=== PATIENT | male | born 1995 | race Caucasian/White ===

== ENCOUNTER 2018-05-25 10:50 | Observation (INO) | payer BC ==
[2018-05-25] MEDS ORDERED: Sodium Chloride 0.9% 10 ML Syringe FLUSH PRN (11:08)
[2018-05-25] MEDS ORDERED: Sodium Chloride 0.9% 1,000 ML IV ONE (11:28)
[2018-05-25] MEDS ORDERED: Sodium Chloride 0.9% 1,000 ML IV SCH (11:30)
--- NOTE | 2018-05-25 11:36 | EDM.PDOC ---
ED HPI GENERAL MEDICAL PROBLEM - General Chief Complaint: Abdominal Pain Stated Complaint: LOWER RT SIDE PAIN Time Seen by Provider: 05/25/18 11:20 Source of Information: Reports: Patient History Limitations: Reports: No Limitations - History of Present Illness INITIAL COMMENTS - FREE TEXT/NARRATIVE: 23-year-old male with onset of lower quadrant abdominal pain that was diffuse at approximately 3 PM yesterday and then at approximately 10 PM last night the pain had moved to his right lower quadrant and he reports that he did not sleep well last night because of the pain. This morning he had normal appetite and he felt somewhat nauseated. The pain has progressively worsened through the day and is worse with movement, palpation and with walking. He rates the pain as a 5 /10 now. It is aching and dull is an 8/10 when he stands and walks and becomes sharp at that point. There is no radiation of the pain. He's had no vomiting. He did have a normal bowel movement yesterday that did nothing to relieve his pain. He's had no fevers. He has had no chills. He has had no dysuria or hematuria. No sore throat. No cough. He has had malaise. His last meal was at 7: 30 PM last night and his last po intake was at 10:30 PM last night. There are no other associated signs or symptoms. There are no other modifying factors. Onset: Other (Yesterday at 3 PM) Duration: Getting Worse, Other (Moved to right lower quadrant at 10 PM last night.) Location: Reports: Abdomen Quality: Reports: Ache, Sharp, Throbbing Severity: Moderate Improves with: Reports: Immobilization, Rest Worsens with: Reports: Other (Palpation and walking.), Movement Context: Reports: Other (As above.) Associated Symptoms: Reports: Loss of Appetite, Malaise, Nausea/Vomiting ( Nausea but no vomiting.) Treatments PERFORATOR LOADER: Reports: Other (see below) Other Treatments PERFORATOR LOADER: Nothing R lower abdomen Pain Score (Numeric/FACES): 5 - Related Data Allergies Allergy/AdvReac Type Severity Reaction Status Date / Time No Known Allergies Allergy Verified 05/25/18 10:55 Home Meds: Home Meds NK [No Known Home Meds] 05/25/18 [History] Past Medical History Respiratory History: Reports: Asthma, Croup (Exercise-induced and he has not required an inhaler for a long time.) Other Respiratory History: exercise induced asthma - Infectious Disease History Infectious Disease History: Reports: Chicken Pox - Past Surgical History HEENT Surgical History: Reports: 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.) Social & Family History - Tobacco Use Smoking Status *Q: Never Smoker - Caffeine Use Caffeine Use: Reports: Energy Drinks, Tea - Recreational Drug Use Recreational Drug Use: No - Living Situation & Occupation Living situation: Reports: Single Occupation: Student (He is a student at [employer] in [employer] ED ROS GENERAL - Review of Systems Review Of Systems: See Below Constitutional: Reports: Malaise, Decreased Appetite HEENT: Reports: No Symptoms Respiratory: Reports: No Symptoms Cardiovascular: Reports: No Symptoms Endocrine: Reports: No Symptoms GI/Abdominal: Reports: Abdominal Pain, Anorexia, Nausea : Reports: No Symptoms Musculoskeletal: Reports: No Symptoms Skin: Reports: No Symptoms Neurological: Reports: No Symptoms Psychiatric: Reports: No Symptoms Hematologic/Lymphatic: Reports: No Symptoms Immunologic: Reports: No Symptoms ED EXAM, GI/ABD - Physical Exam Exam: See Below Exam Limited By: No Limitations General Appearance: Alert, WD/WN, No Apparent Distress Eyes: Bilateral: Normal Appearance, EOMI Ears: Normal External Exam, Hearing Grossly Normal Nose: Normal Inspection, Normal Mucosa, No Blood Throat/Mouth: Normal Inspection, Normal Oropharynx, Normal Voice, No Airway Compromise Head: Atraumatic, Normocephalic Neck: Normal Inspection, Supple, Non-Tender, Full Range of Motion Respiratory/Chest: No Respiratory Distress, Lungs Clear, Normal Breath Sounds, No Accessory Muscle Use, Chest Non-Tender Cardiovascular: Normal Peripheral Pulses, Regular Rate, Rhythm, No JVD, No Murmur GI/Abdominal Exam: Normal Bowel Sounds, Soft, No Organomegaly, No Mass, Rebound (Localized in the right lower quadrant), Tender (In the right lower quadrant) Back Exam: Normal Inspection Extremities: Normal Inspection, Normal Range of Motion, Non-Tender, Normal Capillary Refill Neurological: Alert, Oriented, CN II-XII Intact, Normal Cognition, No Motor/ Sensory Deficits Psychiatric: Normal Affect, Normal Mood Skin Exam: Warm, Dry, Intact, Normal Color, No Rash Lymphatic: No Adenopathy Course - Vital Signs Last Recorded V/S: Last Vital Signs Temp 36.8 C 05/25/18 12:44 Pulse 79 04/18/19 12:44 Resp 18 05/25/18 12:44 BP 117/73 05/25/18 12:44 Pulse Ox 100 05/25/18 12:44 - Orders/Labs/Meds Orders: Active Orders 24 hr Category Date Time Status Nothing per Oral Now Diet [DIET] Diet 05/25/18 Dinner Ordered Abdomen Pelvis w Cont [CT] Stat Exams 05/25/18 11:53 Taken Sodium Chloride 0.9% [Normal Saline] 1,000 ml Med 05/25/18 11:30 Active IV ASDIRECTED Sodium Chloride 0.9% [Saline Flush] Med 05/25/18 11:08 Active 10 ml FLUSH ASDIRECTED PRN Peripheral IV Insertion Adult [OM.PC] Routine Oth 05/25/18 11:08 Ordered Medication Orders Sodium Chloride (Normal Saline) 1,000 mls @ 250 mls/hr IV ASDIRECTED ALYSSA Last Admin: 05/25/18 12:40 Dose: 250 mls/hr Sodium Chloride (Saline Flush) 10 ml FLUSH ASDIRECTED PRN PRN Reason: Keep Vein Open Last Admin: 05/25/18 11:30 Dose: 10 ml Labs: Laboratory Tests 05/25/18 05/25/18 05/25/18 Range/Units 11:08 11:30 11:30 WBC 7.8 (4.5-12.0) X10-3/uL RBC 4.66 (4.30-5.75) x10(6)uL Hgb 14.1 (13.5-17.8) g/dL Hct 40.9 (30.0-51.3) % MCV 87.8 (80-96) fL MCH 30.3 (27.7-33.6) pg MCHC 34.5 (32.2-35.4) g/dL RDW 11.9 (11.5-15.5) % Plt Count 185 (125-369) X10(3)uL MPV 9.0 (7.4-10.4) fL Neut % (Auto) 66.4 (46-82) % Lymph % (Auto) 18.9 (13-37) % [place] % (Auto) 13.2 H (4-12) % Eos % (Auto) 1 (1.0-5.0) % Baso % (Auto) 0 (0-2) % Neut # (Auto) 5.2 (1.6-8.3) # Lymph # (Auto) 1.5 (0.6-5.0) # [place] # (Auto) 1.0 (0.0-1.3) # Eos # (Auto) 0.1 (0.0-0.8) # Baso # (Auto) 0.0 (0.0-0.2) # Sodium 141 (135-145) mmol/L Potassium 4.2 (3.5-5.3) mmol/L Chloride 105 (100-110) mmol/L Carbon Dioxide 25 (21-32) mmol/L BUN 15 (7-18) mg/dL Creatinine 1.1 (0.70-1.30) mg/dL Est Cr Clr Drug Dosing 107.21 mL/min Estimated GFR (MDRD) > 60 (>60) BUN/Creatinine Ratio 13.6 (9-20) Glucose 92 (80-116) mg/dL Calcium 9.0 (8.6-10.2) mg/dL C-Reactive Protein (0.5-0.9) mg/dL Urine Color Yellow (YELLOW) Urine Appearance Slightly cloudy (CLEAR) Urine pH 5.0 (5.0-6.5) Ur Specific [place] 1.025 (1.010-1.025) Urine Protein Negative (NEGATIVE) mg/dL Urine Glucose (UA) Normal (NORMAL) mg/dL Urine Ketones Negative (NEGATIVE) mg/dL Urine Occult Blood Negative (NEGATIVE) Urine Nitrite Negative (NEGATIVE) Urine Bilirubin Negative (NEGATIVE) Urine Urobilinogen Normal (NEGATIVE) mg/dL Ur Leukocyte Esterase Negative (NEGATIVE) Urine WBC 0-5 (0-5) Ur Squamous Epith Cells Few H (NS,R,O) Urine Bacteria Few H (NS) 05/25/18 Range/Units 11:30 WBC (4.5-12.0) X10-3/uL RBC (4.30-5.75) x10(6)uL Hgb (13.5-17.8) g/dL Hct (30.0-51.3) % MCV (80-96) fL MCH (27.7-33.6) pg MCHC (32.2-35.4) g/dL RDW (11.5-15.5) % Plt Count (125-369) X10(3)uL MPV (7.4-10.4) fL Neut % (Auto) (46-82) % Lymph % (Auto) (13-37) % [place] % (Auto) (4-12) % Eos % (Auto) (1.0-5.0) % Baso % (Auto) (0-2) % Neut # (Auto) (1.6-8.3) # Lymph # (Auto) (0.6-5.0) # [place] # (Auto) (0.0-1.3) # Eos # (Auto) (0.0-0.8) # Baso # (Auto) (0.0-0.2) # Sodium (135-145) mmol/L Potassium (3.5-5.3) mmol/L Chloride (100-110) mmol/L Carbon Dioxide (21-32) mmol/L BUN (7-18) mg/dL Creatinine (0.70-1.30) mg/dL Est Cr Clr Drug Dosing mL/min Estimated GFR (MDRD) (>60) BUN/Creatinine Ratio (9-20) Glucose (80-116) mg/dL Calcium (8.6-10.2) mg/dL C-Reactive Protein 0.8 (0.5-0.9) mg/dL Urine Color (YELLOW) Urine Appearance (CLEAR) Urine pH (5.0-6.5) Ur Specific [place] (1.010-1.025) Urine Protein (NEGATIVE) mg/dL Urine Glucose (UA) (NORMAL) mg/dL Urine Ketones (NEGATIVE) mg/dL Urine Occult Blood (NEGATIVE) Urine Nitrite (NEGATIVE) Urine Bilirubin (NEGATIVE) Urine Urobilinogen (NEGATIVE) mg/dL Ur Leukocyte Esterase (NEGATIVE) Urine WBC (0-5) Ur Squamous Epith Cells (NS,R,O) Urine Bacteria (NS) Meds: Medications Generic Name Dose Route Start Last Admin Trade Name Freq PRN Reason Stop Dose Admin Sodium Chloride 1,000 mls @ 250 mls/hr 05/25/18 11:30 05/25/18 12:40 Normal Saline IV 250 mls/hr ASDIRECTED ALYSSA Administration Sodium Chloride 10 ml 05/25/18 11:08 05/25/18 11:30 Saline Flush FLUSH 10 ml ASDIRECTED PRN Administration Keep Vein Open Discontinued Medications Generic Name Dose Route Start Last Admin Trade Name Shweta PRN Reason Stop Dose Admin Sodium Chloride 1,000 mls @ 999 mls/hr 05/25/18 11:28 05/25/18 11:36 Normal Saline IV 05/25/18 12:28 999 mls/hr .BOLUS ONE Administration Iopamidol 100 ml 05/25/18 12:04 05/25/18 12:09 Isovue-370 (76%) IV 05/25/18 12:05 89 ml ONETIME ONE Administration - Radiology Interpretation Free Text/Narrative:: CT scan of abdomen and pelvis showed a normal-appearing appendix with maximum diameter of 6.5 mm. There is no free fluid. He did have some fluid-filled small bowel loops in his right lower quadrant and his bladder wall appeared somewhat thickened per the radiologist. - Re-Assessments/Exams Free Text/Narrative Re-Assessment/Exam: 05/25/18 1155 hrs: Patient's white blood cell count and CRP are normal. His urine is also normal. He remains vitally stable. His exam is unchanged with tenderness to palpation in his right lower quadrant with mild rebound tenderness. I will send him for CT scan of his abdomen and pelvis with IV contrast. Free Text/Narrative Re-Assessment/Exam: 05/25/18 13:06: CT scan of the patient's abdomen and pelvis showed no evidence of acute appendicitis. The patient's exam is still unchanged with tenderness in his right lower quadrant with palpation and some localized rebound. I discussed the patient's case with Dr. Barnett, general surgeon employee communications specialist, and the plan will be to admit the patient as an observation. We will continue the patient on IV normal saline and we'll keep the patient npo for now. Dr. Barnett will place admission orders and will reevaluate the patient later. Departure - Departure Time of Disposition: 13:09 Disposition: Admitted As Inpatient 66 Condition: Good Clinical Impression: Abdominal pain Qualifiers: Abdominal location: right lower quadrant Qualified Code(s): R10.31 - Right lower quadrant pain - Discharge Information Referrals: PCP,None [Primary Care Provider] - Forms: ED Department Discharge - My Orders Last 24 Hours: My Active Orders 05/25/18 11:08 Sodium Chloride 0.9% [Saline Flush] 10 ml FLUSH ASDIRECTED PRN Peripheral IV Insertion Adult [OM.PC] Routine 05/25/18 11:30 Sodium Chloride 0.9% [Normal Saline] 1,000 ml IV ASDIRECTED 05/25/18 11:53 Abdomen Pelvis w Cont [CT] Stat 05/25/18 Dinner Nothing per Oral Now Diet [DIET] - Assessment/Plan Last 24 Hours: My Active Orders 05/25/18 11:08 Sodium Chloride 0.9% [Saline Flush] 10 ml FLUSH ASDIRECTED PRN Peripheral IV Insertion Adult [OM.PC] Routine 05/25/18 11:30 Sodium Chloride 0.9% [Normal Saline] 1,000 ml IV ASDIRECTED 05/25/18 11:53 Abdomen Pelvis w Cont [CT] Stat 05/25/18 Dinner Nothing per Oral Now Diet [DIET]
[2018-05-25] MEDS ORDERED: Iopamidol 755 Mg/ML 100 ML Bottle IV ONE (12:04)
--- NOTE | 2018-05-25 13:46 | CT ---
INDICATION: Right lower quadrant abdominal pain. No appetite. CT ABDOMEN AND PELVIS WITH IV CONTRAST: Spiral 3.75 mm axial sections were obtained through the abdomen and pelvis with 89 mL Isovue 370 at 2 mL/second with 100 second delay, with sagittal and coronal reconstructions, 05/25/18 - no comparisons. Total exam DLP = 405.50 mGy-cm. Lower lung castillo and pleural spaces visualized appeared normal. The heart appeared normal in size. No pericardial effusion was seen. The liver, gallbladder, adrenals, kidneys, spleen, and pancreas were unremarkable. No retroperitoneal mass was seen. What appears to be the appendix was not ideally visualized and appeared to be present on coronal images #38 through #44. It appeared normal. No definite appendicitis is seen. No evidence of free air or bowel obstruction was identified. No organomegaly, mass lesions, or free fluid collections were identified in the abdomen or pelvis. There is, however, suggestion of some minimal thickening of the wall of the urinary bladder, which should be correlated clinically, if cystitis is a possibility clinically. IMPRESSION: 1. No definite evidence for appendicitis. 2. Slight thickening of the wall of the urinary bladder, which could represent cystitis and should be correlated clinically. Report was called to Dr. Rich Guerrero at 1254 hours on 05/25/18. [facility]
[2018-05-25] MEDS ORDERED: Ondansetron 4 MG/2 ML SDV IV PRN (14:51)
[2018-05-25] MEDS ORDERED: Lactated Ringers 1,000 ML IV SCH (15:00)
--- NOTE | 2018-05-25 18:00 | PCM.HP ---
H&P History of Present Illness - General Date of Service: 05/25/18 Admit Problem/Dx: Admission Diagnosis/Problem Admission Diagnosis/Problem Abdominal pain - History of Present Illness Initial Comments - Free Text/Narative: 23 yo wm who developed some abd pain yesterday. This was located in the RLQ. Did have some nausea but no vomiting. Today the pain was worse. He noted that it was worse when he stood, and better when he was reclined. He denies any fever, chills, anorexia. Was refered by the school nurse and underwent a natarajan. Negative CBC, CRP and CT scan. Due to his marked tenderness was admitted observation care on my service. This evening he feels much better. Is Hungry. Vitals have remained stable. 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 Respiratory Surgical History: Reports: None Dermatological Surgical History: Reports: None Social & Family History - Family History Family Medical History: Noncontributory HEENT: Reports: None Cardiac: Reports: Other (See Below) Other Cardiac Family History: dad had heart surgery Respiratory: Reports: None GI: Reports: None : Reports: None OBGYN: Reports: Musculoskeletal: Reports: None Neurological: Reports: None Psychiatric: Reports: None Endocrine/Metabolic: Reports: None Hematologic: Reports: None Immunologic: Reports: None Dermatologic: Reports: None Oncologic: Reports: None - Tobacco Use Smoking Status *Q: Never Smoker Second Hand Smoke Exposure: No - Caffeine Use Caffeine Use: Reports: Energy Drinks, Tea - Alcohol Use Days Per Week of Alcohol Use: 0 - Recreational Drug Use Recreational Drug Use: No - Living Situation & Occupation Living situation: Reports: Single 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 Denies: Black Stool, Bloody Stool, Constipation, Diarrhea, Decreased Appetite Genitourinary: Reports: No Symptoms Musculoskeletal: Reports: No Symptoms Skin: Reports: No Symptoms Exam - Exam Exam: See Below - Vital Signs Vital Signs: Last Vital Signs Temp 98.1 F 05/25/18 13:37 Pulse 79 05/25/18 12:44 Resp 16 05/25/18 13:37 BP 113/72 05/25/18 13:37 Pulse Ox 98 05/25/18 13:37 Weight: 73.255 kg - Exam General: Alert, Oriented, Cooperative Lungs: Clear to Auscultation, Normal Respiratory Effort Cardiovascular: Regular Rate, Regular Rhythm GI/Abdominal Exam: Normal Bowel Sounds, Soft, Non-Tender, No Distention, No Mass. No: Guarding, Rigid, Rebound, Tender - Patient Data Lab Results Last 24 hrs: Laboratory Results - last 24 hr 05/25/18 05/25/18 05/25/18 Range/Units 11:08 11:30 11:30 WBC 7.8 (4.5-12.0) X10-3/uL RBC 4.66 (4.30-5.75) x10(6)uL Hgb 14.1 (13.5-17.8) g/dL Hct 40.9 (30.0-51.3) % MCV 87.8 (80-96) fL MCH 30.3 (27.7-33.6) pg MCHC 34.5 (32.2-35.4) g/dL RDW 11.9 (11.5-15.5) % Plt Count 185 (125-369) X10(3)uL MPV 9.0 (7.4-10.4) fL Neut % (Auto) 66.4 (46-82) % Lymph % (Auto) 18.9 (13-37) % [place] % (Auto) 13.2 H (4-12) % Eos % (Auto) 1 (1.0-5.0) % Baso % (Auto) 0 (0-2) % Neut # (Auto) 5.2 (1.6-8.3) # Lymph # (Auto) 1.5 (0.6-5.0) # [place] # (Auto) 1.0 (0.0-1.3) # Eos # (Auto) 0.1 (0.0-0.8) # Baso # (Auto) 0.0 (0.0-0.2) # Sodium 141 (135-145) mmol/L Potassium 4.2 (3.5-5.3) mmol/L Chloride 105 (100-110) mmol/L Carbon Dioxide 25 (21-32) mmol/L BUN 15 (7-18) mg/dL Creatinine 1.1 (0.70-1.30) mg/dL Est Cr Clr Drug Dosing 107.21 mL/min Estimated GFR (MDRD) > 60 (>60) BUN/Creatinine Ratio 13.6 (9-20) Glucose 92 (80-116) mg/dL Calcium 9.0 (8.6-10.2) mg/dL C-Reactive Protein (0.5-0.9) mg/dL Urine Color Yellow (YELLOW) Urine Appearance Slightly cloudy (CLEAR) Urine pH 5.0 (5.0-6.5) Ur Specific [place] 1.025 (1.010-1.025) Urine Protein Negative (NEGATIVE) mg/dL Urine Glucose (UA) Normal (NORMAL) mg/dL Urine Ketones Negative (NEGATIVE) mg/dL Urine Occult Blood Negative (NEGATIVE) Urine Nitrite Negative (NEGATIVE) Urine Bilirubin Negative (NEGATIVE) Urine Urobilinogen Normal (NEGATIVE) mg/dL Ur Leukocyte Esterase Negative (NEGATIVE) Urine WBC 0-5 (0-5) Ur Squamous Epith Cells Few H (NS,R,O) Urine Bacteria Few H (NS) 05/25/18 Range/Units 11:30 WBC (4.5-12.0) X10-3/uL RBC (4.30-5.75) x10(6)uL Hgb (13.5-17.8) g/dL Hct (30.0-51.3) % MCV (80-96) fL MCH (27.7-33.6) pg MCHC (32.2-35.4) g/dL RDW (11.5-15.5) % Plt Count (125-369) X10(3)uL MPV (7.4-10.4) fL Neut % (Auto) (46-82) % Lymph % (Auto) (13-37) % [place] % (Auto) (4-12) % Eos % (Auto) (1.0-5.0) % Baso % (Auto) (0-2) % Neut # (Auto) (1.6-8.3) # Lymph # (Auto) (0.6-5.0) # [place] # (Auto) (0.0-1.3) # Eos # (Auto) (0.0-0.8) # Baso # (Auto) (0.0-0.2) # Sodium (135-145) mmol/L Potassium (3.5-5.3) mmol/L Chloride (100-110) mmol/L Carbon Dioxide (21-32) mmol/L BUN (7-18) mg/dL Creatinine (0.70-1.30) mg/dL Est Cr Clr Drug Dosing mL/min Estimated GFR (MDRD) (>60) BUN/Creatinine Ratio (9-20) Glucose (80-116) mg/dL Calcium (8.6-10.2) mg/dL C-Reactive Protein 0.8 (0.5-0.9) mg/dL Urine Color (YELLOW) Urine Appearance (CLEAR) Urine pH (5.0-6.5) Ur Specific [place] (1.010-1.025) Urine Protein (NEGATIVE) mg/dL Urine Glucose (UA) (NORMAL) mg/dL Urine Ketones (NEGATIVE) mg/dL Urine Occult Blood (NEGATIVE) Urine Nitrite (NEGATIVE) Urine Bilirubin (NEGATIVE) Urine Urobilinogen (NEGATIVE) mg/dL Ur Leukocyte Esterase (NEGATIVE) Urine WBC (0-5) Ur Squamous Epith Cells (NS,R,O) Urine Bacteria (NS) Result Diagrams: 05/25/18 11:30 05/25/18 11:30 - Problem List (1) Abdominal pain SNOMED Code(s): 14145746 ICD Code: R10.9 - UNSPECIFIED ABDOMINAL PAIN Status: Resolved Current Visit: Yes Qualifiers: Abdominal location: right lower quadrant Qualified Code(s): R10.31 - Right lower quadrant pain Problem List Initiated/Reviewed/Updated: Yes Orders Last 24hrs: Active Orders 24 hr Category Date Time Status Patient Status [ADT] Routine ADT 05/25/18 14:51 Active Intake and Output [RC] QSHIFT Care 05/25/18 14:52 Active Notify Provider Vital Signs [RC] ASDIRECTED Care 05/25/18 14:52 Active Oxygen Therapy [RC] PRN Care 05/25/18 14:51 Active VTE/DVT Education [RC] Per Unit Routine Care 05/25/18 14:51 Active Vital Signs [RC] Q4H Care 05/25/18 14:51 Active Nothing per Oral Now Diet [DIET] Diet 05/25/18 Dinner Ordered CBC WITH AUTO DIFF [HEME] AM Lab 05/26/18 05:11 Ordered Lactated Ringers [Ringers, Lactated] 1,000 ml Med 05/25/18 15:00 Active IV ASDIRECTED Ondansetron [Zofran] Med 05/25/18 14:51 Active 4 mg IV Q6H PRN Sodium Chloride 0.9% [Saline Flush] Med 05/25/18 11:08 Active 10 ml FLUSH ASDIRECTED PRN Peripheral IV Insertion Adult [OM.PC] Routine Oth 05/25/18 11:08 Ordered Sequential Compression Device [OM.PC] Per Unit Routine Oth 05/25/18 14:52 Ordered Resuscitation Status Routine Resus Stat 05/25/18 14:51 Ordered Medication Orders Lactated Ringer's (Ringers, Lactated) 1,000 mls @ 125 mls/hr IV ASDIRECTED ALYSSA Ondansetron HCl (Zofran) 4 mg IV Q6H PRN PRN Reason: Nausea/Vomiting Sodium Chloride (Saline Flush) 10 ml FLUSH ASDIRECTED PRN PRN Reason: Keep Vein Open Last Admin: 05/25/18 11:30 Dose: 10 ml Assessment/Plan Comment:: Has a fair amount of stool in the colon which is the probable cause of his pain. Has a nonsurgical abd and is feeling better. Will feed and if tolerates will allow to go home tonight.
== END 2018-05-25 19:42 | disposition home or self-care (01) ==
LOC: FB.ED 10:50 → FB.MS 13:16 → UNDOADMOB 13:16 → FB.SDS 13:16
PROVIDERS: ADMIT Surgery; ATTEND Surgery
DX: R10.31 Right lower quadrant pain (principal); R10.813 Right lower quadrant abdominal tenderness; R11.0 Nausea
CPT/HCPCS: 36415; 74177; 80048; 81001; 85025; 86140; J7030; Q9967

== ENCOUNTER 2019-01-20 18:12 | Emergency (ER) | payer BC ==
[2019-01-20] MEDS ORDERED: Amoxicillin/Clavulanate K 875-125 MG Tab PO ONE ×2 (18:13→18:40)
[2019-01-20] MEDS ORDERED: Diphtheria,Pertussis(Acell),Tetanus Vaccine 0.5 ML SDV IM ONE (18:33)
--- NOTE | 2019-01-20 18:33 | EDM.PDOC ---
ED HPI GENERAL MEDICAL PROBLEM - General Stated Complaint: BIT WITH THE DOG Time Seen by Provider: 01/20/19 18:15 Source of Information: Reports: Patient History Limitations: Reports: No Limitations - History of Present Illness INITIAL COMMENTS - FREE TEXT/NARRATIVE: pt was pit by a domestic dog owned by a resident at his apartment building about an hour ago, on his left arm and left thigh , pt denies any other injuries , states his tetanus is more than 5 years. pt has made already a report to law enforcement. 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 Respiratory Surgical History: Reports: None Dermatological Surgical History: Reports: None Social & Family History - Family History Family Medical History: Noncontributory HEENT: Reports: None Cardiac: Reports: Other (See Below) Other Cardiac Family History: dad had heart surgery Respiratory: Reports: None GI: Reports: None : Reports: None OBGYN: Reports: Musculoskeletal: Reports: None Neurological: Reports: None Psychiatric: Reports: None Endocrine/Metabolic: Reports: None Hematologic: Reports: None Immunologic: Reports: None Dermatologic: Reports: None Oncologic: Reports: None - Caffeine Use Caffeine Use: Reports: Energy Drinks, Tea - Living Situation & Occupation Living situation: Reports: Single 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.) ED ROS GENERAL - Review of Systems Review Of Systems: See Below Constitutional: Reports: No Symptoms HEENT: Reports: No Symptoms Respiratory: Reports: No Symptoms Cardiovascular: Reports: No Symptoms GI/Abdominal: Reports: No Symptoms Neurological: Reports: No Symptoms ED EXAM, GENERAL - Physical Exam Exam: See Below Exam Limited By: No Limitations General Appearance: Alert, No Apparent Distress Eye Exam: Bilateral Eye: Normal Inspection Throat/Mouth: Normal Inspection, Normal Oropharynx Head: Atraumatic, Normocephalic Neck: Normal Inspection, Supple, Non-Tender Respiratory/Chest: No Respiratory Distress, Lungs Clear, Normal Breath Sounds Cardiovascular: Normal Peripheral Pulses, Regular Rate, Rhythm GI/Abdominal: Normal Bowel Sounds, Soft, Non-Tender Extremities: Other (there are 2 puncture wounds with soft tissue contusion and edema at lateral side of left thigh , also abrasions over the left forearm. ) Neurological: Alert, CN II-XII Intact, No Motor/Sensory Deficits Course - Vital Signs Text/Narrative:: usual wound care was explained, pt will be covered prophylactically with Augmentin and tdap was given, F/U is PRN. law enforcement were contacted. Departure - Departure Time of Disposition: 18:33 Disposition: Home, Self-Care 01 Clinical Impression: Dog bite - Discharge Information Referrals: PCP,None [Primary Care Provider] -
== END 2019-01-20 19:10 | disposition home or self-care (01) ==
LOC: FB.ED 18:12
DX: S71.132A Puncture wound without foreign body, left thigh, initial encounter (principal); S50.812A Abrasion of left forearm, initial encounter; J45.909 Unspecified asthma, uncomplicated; W54.0XXA Bitten by dog, initial encounter; Y92.039 Unspecified place in apartment as the place of occurrence of the external cause; Y93.89 Activity, other specified
CPT/HCPCS: 90471; 90715; 99283; A9270